=== PATIENT | female | born 1945 ===

== ENCOUNTER 2023-02-12 13:59 | Inpatient (IN) | payer MEDICARE, OTHER ==
[2023-02-12 14:12] LABS: Glucose,Whole Blood 130 mg/dL (70-110)
[2023-02-12] MEDS ORDERED: SODIUM CHLORIDE 0.9% 1,000 ML IV STA ×2 (14:19→18:01)
[2023-02-12] MEDS ORDERED: ONDANSETRON 4 MG/2 ML VIAL IVP STA ×2 (14:19→15:26)
[2023-02-12 14:27] LABS: Glucose,Whole Blood 129 mg/dL (70-110)
--- NOTE | 2023-02-12 14:30 | ED ---
General Adult HPI - General Chief complaint: Syncope Stated complaint: Hypoglycemia Time Seen by Provider: 02/12/23 14:09 Source: patient, EMS Mode of arrival: EMS Limitations: no limitations - History of Present Illness Initial comments: Dictation was produced using [employer] dictation software. please excuse any grammatical, word or spelling errors. Chief Complaint: 77-year-old female presents emergency department for hypoglycemia and abdominal pain History of Present Illness: 77-year-old female. History of present illness Limited due to Citizen Of [place] speaking only. Granddaughter is at the bedside provides history of present illness. Patient recently moved from [place] after her had . She has established diagnoses of hypertension, diabetes. She has no history of worsening renal function. She was told that s he needs dialysis however she is continued to refuse. This morning she woke up felt very ill. Family checked her blood sugar and was apparently the 20s. EMS was called and checked her blood sugar and it was significantly low into the 40s. She is given dextrose and her blood glucose levels improved. Patient complaining of lower abdominal pain. She does have some chills but denies any fevers. The ROS documented in this emergency department record has been reviewed and confirmed by me. Those systems with pertinent positive or negative responses have been documented in the HPI. All other systems are other negative and/or noncontributory. - Related Data Allergies Allergy/AdvReac Type Severity Reaction Status Date / Time No Known Allergies Allergy Verified 02/12/23 14:11 Review of Systems ROS Statement: Those systems with pertinent positive or pertinent negative responses have been documented in the HPI. ROS Other: All systems not noted in ROS Statement are negative. Past Medical History Past Medical History: Hypertension, Renal Disease History of Any Multi-Drug Resistant Organisms: None Reported Past Surgical History: No Surgical Hx Reported Smoking Status: Never smoker Past Alcohol Use History: None Reported Past Drug Use History: None Reported General Exam - General Exam Comments Initial Comments: PHYSICAL EXAM: General Impression: Alert and oriented x3, acute distress and her pain HEENT: Normocephalic atraumatic, extra-ocular movements intact, pupils equal and reactive to light bilaterally, dry mucous membranes Cardiovascular: Heart regular rate and rhythm Chest: Able to complete full sentences, no retractions, no tachypnea Abdomen: abdomen soft, palpatory tenderness in the bilateral lower abdominal area non-distended, no organomegaly Musculoskeletal: Pulses present and equal in all extremities, no peripheral edema Motor: no focal deficits noted Neurological: CN II-XII grossly intact, no focal motor or sensory deficits noted Skin: Intact with no visualized rashes Limitations: no limitations Course Vital Signs 02/12/23 02/12/23 02/12/23 14:03 14:04 14:30 Temperature 97 F L Pulse Rate 110 H 112 H Respiratory 22 14 Rate Blood Pressure 180/83 186/115 O2 Sat by Pulse 88 L 91 L 97 Oximetry 02/12/23 02/12/23 15:30 16:00 Temperature Pulse Rate 121 H 130 H Respiratory 9 L 17 Rate Blood Pressure 170/78 167/82 O2 Sat by Pulse 99 100 Oximetry Medical Decision Making - Medical Decision Making Was pt. sent in by a medical professional or institution (, PA, CURATORIAL ASSISTANT, urgent care, hospital, or intermediate...) When possible be specific @ -No Did you speak to anyone other than the patient for history (EMS, parent, family, police, friend...)? What history was obtained from this source @ -EMS, family member who provides history and interprets Did you review nursing and triage notes (agree or disagree)? Why? @ -I reviewed and agree with nursing and triage notes Were old charts reviewed (outside hosp., previous admission, EMS record, old EKG, old radiological studies, urgent care reports/EKG's, intermediate records)? Report findings @ -No old charts available Differential Diagnosis (chest pain, altered mental status, abdominal pain women, abdominal pain men, vaginal bleeding, musculoskeletal, weakness, fever, dyspnea, syncope, headache, dizziness, GI bleed, back pain, seizure, CVA, palpatations, mental health)? @ -Differential Abdominal Pain Women: Appendicitis, Cholecystitis, diverticulosis, ischemic bowel, pancreatitis, hepatitis, UTI, gastroenteritis, AAA, incarcerated hernia, bowel obstruction, constipation, inflammatory bowel, hepatitis, peptic ulcer disease, splenic infarction, perforated viscus, vulvitis, ovarian torsion, PID, kidney stone, placenta abruption, this is not meant to be an all-inclusive list EKG interpreted by me (3pts min.). @ -My EKG interpretation: Ventricular rate 107, sinus tachycardia,. 163, QRS 73, QTc 383. No [place] prolongation, no QTC prolongation, no ST or T-wave changes noted. Overall, this EKG is unremarkable X-rays interpreted by me (1pt min.). @ -Chest x-ray shows no acute processes CT interpreted by me (1pt min.). @ -CT of the abdomen and pelvis without contrast was obtained showing no acute processes U/S interpreted by me (1pt. min.). @ -None done What testing was considered but not performed or refused? (CT, X-rays, U/S, labs)? Why? @ -None What meds were considered but not given or refused? Why? @ -None Did you discuss the management of the patient with other professionals (professionals i.e. , PA, CURATORIAL ASSISTANT, lab, RT, psych nurse, social services analyst, childcare center director, teacher, personal banking officer, registered nurse hh case manager)? Give summary @ -Case discussed with Dr. Cano for admission Was smoking cessation discussed for >3mins.? @ -No Was critical care preformed (if so, how long)? @ -No Were there social determinants of health that impacted care today? How? (Homelessness, low income, unemployed, alcoholism, drug addiction, transportation, low edu. Level, literacy, decrease access to med. care, senior living, rehab)? @ -Recently Migrated from [place], Citizen Of [place] speaking only Was there de-escalation of care discussed even if they declined (Discuss DNR or withdrawal of care, Hospice)? DNR status @ -Patient refusing hemodialysis. CODE STATUS discussed. Patient DO NOT RESUSCITATE What co-morbidities impacted this encounter? (DM, HTN, Smoking, COPD, CAD, Cancer, CVA, ARF, Chemo, Hep., AIDS, mental health diagnosis, sleep apnea, mor bid obesity)? @ -None Was patient admitted / discharged? Hospital course, mention meds given and route, prescriptions, significant lab abnormalities, going to OR and other pertinent info. @ -77-year-old female, Citizen Of [place]-speaking only recently migrated from [place]. He is unclear whether patient has had adequate medical care and treatment while in [place]. She has no history of worsening kidney function. Patient adamantly refusing hemodialysis. She is allegedly on metformin for diabetes. Patient is brought to the area for hyperglycemia. Patient also having abdominal pain. CBC is unremarkable. Coag panel is negative. Metabolic panel shows mild gap acidosis. Elevated renal function with a BUN of 90 and a creatinine 5.21. No old labs for review. Urinalysis is positive for 29 white blood cells and 16 red blood cells. Patient was value by palliative care. Patient adamantly refusing hemodialysis. She is however agreeable for admission with medical treatment. Undiagnosed new problem with uncertain prognosis? @ -No Drug Therapy requiring intensive monitoring for toxicity (Heparin, Nitro, Insulin, Cardizem)? @ -No Were any procedures done? @ -No Diagnosis/symptom? Acute, or Chronic, or Acute on Chronic? Uncomplicated (without systemic symptoms) or Complicated (systemic symptoms)? @ -1. Acute kidney injury, 2. Intractable pain, no obvious source, 3. Hypoglycemia, no obvious source Side effects of treatment? @ -No Exacerbation, Progression, or Severe Exacerbation? @ -No Poses a threat to life or bodily function? How? (Chest pain, [place], [place], pneumonia, PE, COPD, DKA, ARF, appy, cholecystitis, CVA, Diverticulitis, Homicidal, Suicidal, threat to staff... and all critical care pts) @ -yes - Lab Data Result diagrams: 02/12/23 14:20 02/12/23 14:20 Lab Results 02/12/23 02/12/23 02/12/23 Range/Units 14:01 14:20 14:20 WBC 6.1 (3.8-10.6) k/uL RBC 3.70 L (3.80-5.40) m/uL Hgb 10.4 L (11.4-16.0) gm/dL Hct 33.3 L (34.0-46.0) % MCV 90.1 (80.0-100.0) fL MCH 28.1 (25.0-35.0) pg MCHC 31.2 (31.0-37.0) g/dL RDW 14.0 (11.5-15.5) % Plt Count 265 (150-450) k/uL MPV 6.9 Neutrophils % 67 % Lymphocytes % 28 % Monocytes % 3 % Eosinophils % 1 % Basophils % 0 % Neutrophils # 4.1 (1.3-7.7) k/uL Lymphocytes # 1.7 (1.0-4.8) k/uL Monocytes # 0.2 (0-1.0) k/uL Eosinophils # 0.0 (0-0.7) k/uL Basophils # 0.0 (0-0.2) k/uL PT 10.1 (9.0-12.0) sec INR 0.9 (<1.2) APTT 18.2 L (22.0-30.0) sec Sodium (137-145) mmol/L Potassium (3.5-5.1) mmol/L Chloride (98-107) mmol/L Carbon Dioxide (22-30) mmol/L Anion Gap mmol/L BUN (7-17) mg/dL Creatinine (0.52-1.04) mg/dL Est GFR (CKD-EPI)AfAm (>60 ml/min/1.73 sqM) Est GFR (CKD-EPI)NonAf (>60 ml/min/1.73 sqM) Glucose (74-99) mg/dL POC Glucose (mg/dL) 130 H (70-110) mg/dL POC Glu Critical Power Technician ID Sarita Hutchins Plasma Lactic Acid Sergo (0.7-2.0) mmol/L Calcium (8.4-10.2) mg/dL Magnesium (1.6-2.3) mg/dL Total Bilirubin (0.2-1.3) mg/dL AST (14-36) U/L ALT (4-34) U/L Alkaline Phosphatase (38-126) U/L Total Protein (6.3-8.2) g/dL Albumin (3.5-5.0) g/dL Urine Color Urine Appearance (Clear) Urine pH (5.0-8.0) Ur Specific [place] (1.001-1.035) Urine Protein (Negative) Urine Glucose (UA) (Negative) Urine Ketones (Negative) Urine Blood (Negative) Urine Nitrite (Negative) Urine Bilirubin (Negative) Urine Urobilinogen (<2.0) mg/dL Ur Leukocyte Esterase (Negative) Urine RBC (0-5) /hpf Urine WBC (0-5) /hpf Ur Squamous Epith Cells (0-4) /hpf Urine Bacteria (None) /hpf 02/12/23 02/12/23 02/12/23 Range/Units 14:20 14:20 14:20 WBC (3.8-10.6) k/uL RBC (3.80-5.40) m/uL Hgb (11.4-16.0) gm/dL Hct (34.0-46.0) % MCV (80.0-100.0) fL MCH (25.0-35.0) pg MCHC (31.0-37.0) g/dL RDW (11.5-15.5) % Plt Count (150-450) k/uL MPV Neutrophils % % Lymphocytes % % Monocytes % % Eosinophils % % Basophils % % Neutrophils # (1.3-7.7) k/uL Lymphocytes # (1.0-4.8) k/uL Monocytes # (0-1.0) k/uL Eosinophils # (0-0.7) k/uL Basophils # (0-0.2) k/uL PT (9.0-12.0) sec INR (<1.2) APTT (22.0-30.0) sec Sodium 139 (137-145) mmol/L Potassium 5.4 H (3.5-5.1) mmol/L Chloride 107 (98-107) mmol/L Carbon Dioxide 18 L (22-30) mmol/L Anion Gap 14 mmol/L BUN 90 H (7-17) mg/dL Creatinine 5.21 H (0.52-1.04) mg/dL Est GFR (CKD-EPI)AfAm 9 (>60 ml/min/1.73 sqM) Est GFR (CKD-EPI)NonAf 7 (>60 ml/min/1.73 sqM) Glucose 132 H (74-99) mg/dL POC Glucose (mg/dL) (70-110) mg/dL POC Glu Critical Power Technician ID Plasma Lactic Acid Sergo 1.9 (0.7-2.0) mmol/L Calcium 9.2 (8.4-10.2) mg/dL Magnesium 1.7 (1.6-2.3) mg/dL Total Bilirubin 0.4 (0.2-1.3) mg/dL AST 26 (14-36) U/L ALT 16 (4-34) U/L Alkaline Phosphatase 198 H (38-126) U/L Total Protein 6.6 (6.3-8.2) g/dL Albumin 3.3 L (3.5-5.0) g/dL Urine Color Light Yellow Urine Appearance Cloudy H (Clear) Urine pH 6.5 (5.0-8.0) Ur Specific [place] 1.009 (1.001-1.035) Urine Protein 2+ H (Negative) Urine Glucose (UA) Trace H (Negative) Urine Ketones Negative (Negative) Urine Blood Negative (Negative) Urine Nitrite Negative (Negative) Urine Bilirubin Negative (Negative) Urine Urobilinogen <2.0 (<2.0) mg/dL Ur Leukocyte Esterase Large H (Negative) Urine RBC 16 H (0-5) /hpf Urine WBC 29 H (0-5) /hpf Ur Squamous Epith Cells <1 (0-4) /hpf Urine Bacteria Occasional H (None) /hpf 02/12/23 02/12/23 Range/Units 14:25 15:37 WBC (3.8-10.6) k/uL RBC (3.80-5.40) m/uL Hgb (11.4-16.0) gm/dL Hct (34.0-46.0) % MCV (80.0-100.0) fL MCH (25.0-35.0) pg MCHC (31.0-37.0) g/dL RDW (11.5-15.5) % Plt Count (150-450) k/uL MPV Neutrophils % % Lymphocytes % % Monocytes % % Eosinophils % % Basophils % % Neutrophils # (1.3-7.7) k/uL Lymphocytes # (1.0-4.8) k/uL Monocytes # (0-1.0) k/uL Eosinophils # (0-0.7) k/uL Basophils # (0-0.2) k/uL PT (9.0-12.0) sec INR (<1.2) APTT (22.0-30.0) sec Sodium (137-145) mmol/L Potassium (3.5-5.1) mmol/L Chloride (98-107) mmol/L Carbon Dioxide (22-30) mmol/L Anion Gap mmol/L BUN (7-17) mg/dL Creatinine (0.52-1.04) mg/dL Est GFR (CKD-EPI)AfAm (>60 ml/min/1.73 sqM) Est GFR (CKD-EPI)NonAf (>60 ml/min/1.73 sqM) Glucose (74-99) mg/dL POC Glucose (mg/dL) 129 H 116 H (70-110) mg/dL POC Glu Critical Power Technician ID Erica Nur John Plasma Lactic Acid Sergo (0.7-2.0) mmol/L Calcium (8.4-10.2) mg/dL Magnesium (1.6-2.3) mg/dL Total Bilirubin (0.2-1.3) mg/dL AST (14-36) U/L ALT (4-34) U/L Alkaline Phosphatase (38-126) U/L Total Protein (6.3-8.2) g/dL Albumin (3.5-5.0) g/dL Urine Color Urine Appearance (Clear) Urine pH (5.0-8.0) Ur Specific [place] (1.001-1.035) Urine Protein (Negative) Urine Glucose (UA) (Negative) Urine Ketones (Negative) Urine Blood (Negative) Urine Nitrite (Negative) Urine Bilirubin (Negative) Urine Urobilinogen (<2.0) mg/dL Ur Leukocyte Esterase (Negative) Urine RBC (0-5) /hpf Urine WBC (0-5) /hpf Ur Squamous Epith Cells (0-4) /hpf Urine Bacteria (None) /hpf Disposition Clinical Impression: Hypoglycemia, Kidney injury Disposition: ADMITTED IP TO THIS [facility] Condition: Fair Decision Time: 17:31
[2023-02-12 15:02] LABS: Basophils % (A) 0 %; Eosinophils % (A) 1 %; HCT 33.3 % (34.0-46.0); HGB 10.4 gm/dL (11.4-16.0); Lymphocytes # (A) 1.7 k/uL (1.0-4.8); Lymphocytes % (A) 28 %; MCH 28.1 pg (25.0-35.0); MCHC 31.2 g/dL (31.0-37.0); MCV 90.1 fL (80.0-100.0); Mean Platelet Volume 6.9; Monocytes # (A) 0.2 k/uL (0-1.0); Monocytes % (A) 3 %; Neutrophils # (A) 4.1 k/uL (1.3-7.7); Neutrophils % (A) 67 %; Platelet Count 265 k/uL (150-450); WBC 6.1 k/uL (3.8-10.6)
[2023-02-12 15:10] LABS: INR 0.9 (<1.2); Prothrombin Time 10.1 sec (9.0-12.0)
[2023-02-12 15:12] LABS: Albumin 3.3 g/dL (3.5-5.0); Calcium 9.2 mg/dL (8.4-10.2); Magnesium 1.7 mg/dL (1.6-2.3); Potassium 5.4 mmol/L (3.5-5.1); Total Bilirubin 0.4 mg/dL (0.2-1.3); Total Protein 6.6 g/dL (6.3-8.2)
--- NOTE | 2023-02-12 15:15 | CT ---
EXAMINATION TYPE: CT abdomen pelvis wo con DATE OF EXAM: 02/12/2023 COMPARISON: None HISTORY: jaundice, renal failure CT DLP: 1058.6 mGycm Examination of the solid and hollow viscera is limited given the lack of contrast. Unenhanced CT of t he abdomen and pelvis was performed. The lack of intravenous and GI contrast limits evaluation. In ad dition motion also limits the study secondary to artifact. FINDINGS: LUNG BASES: No evidence for nodule. No evidence for infiltrate. Small hiatal hernia noted. LIVER/GB: There is gallbladder hydrops in maximal dimension of 8.8 cm. No definite cholelithiasis claire reciated on CT. No space-occupying hepatic lesion. PANCREAS: No pancreatic mass identified. No inflammatory process seen. SPLEEN: No evidence for splenomegaly. No intrasplenic lesions seen. ADRENALS: No adrenal nodules identified. No evidence for thickening. KIDNEYS: No evidence for renal mass. No nephrolithiasis. No hydronephrosis. Renal vascular calcificat ions seen. BOWEL: Appendix has a normal appearance. No evidence of bowel obstruction. No inflammatory process. Lymph nodes: No evidence for adenopathy greater than 1 cm. Abdominal aorta: Atheromatous changes seen. No evidence for aneurysm. Genital organs: No significant abnormality. Other: No significant abnormality. IMPRESSION: 1. Gallbladder hydrops without wall thickening or pericholecystic fluid. No evidence of cholelithiasi s.
[2023-02-12 15:17] LABS: Partial Thromboplastin Time 18.2 sec (22.0-30.0)
--- NOTE | 2023-02-12 15:20 | XR ---
EXAMINATION TYPE: XR chest 2V DATE OF EXAM: 02/12/2023 COMPARISON: NONE HISTORY: Shortness of breath TECHNIQUE: Frontal and lateral views of the chest are obtained. FINDINGS: Scattered senescent parenchymal changes noted. Hyperinflation compatible with COPD. No evidence for infiltrate. No evidence for atelectasis. Heart size is stable. Mediastinal structures are stable and grossly unremarkable. No evidence for hilar prominence. Degenerative changes dorsal spine. IMPRESSION: 1. No evidence for acute pulmonary disease.
[2023-02-12 15:21] LABS: Appearance,Urine Cloudy (Clear); Bacteria,Urine Occasional /hpf; Bilirubin,Urine Negative (Negative); Blood,Urine Negative (Negative); Color,Urine Light Yellow; Glucose,Urine (UA) Trace (Negative); Ketones,Urine Negative (Negative); Leukocyte Esterase,Urine Large (Negative); Nitrite,Urine Negative (Negative); PH, Urine 6.5 (5.0-8.0); Protein,Urine 2+ (Negative); RBC,Urine 16 /hpf (0-5); Specific Gravity,Urine 1.009 (1.001-1.035); Squamous Epithelial Cell,Urine <1 /hpf (0-4); Urobilinogen,Urine <2.0 mg/dL (<2.0); WBC,Urine 29 /hpf (0-5)
[2023-02-12 15:39] LABS: Glucose,Whole Blood 116 mg/dL (70-110)
[2023-02-12] MEDS ORDERED: MORPHINE SULFATE 4 MG/ML SYRINGE IV STA (16:20)
[2023-02-12] MEDS ORDERED: MORPHINE SULFATE 2 MG/ML SYRINGE IV STA (17:00)
[2023-02-12] MEDS ORDERED: NALOXONE 0.4 MG/ML 1 ML VIAL IV PRN (17:01)
[2023-02-12] MEDS ORDERED: MORPHINE SULFATE 2 MG/ML SYRINGE IV PRN (17:03)
[2023-02-12 17:20] LABS: Glucose,Whole Blood 73 mg/dL (70-110)
[2023-02-12] MEDS: SODIUM CHLORIDE 0.9% 1,000 ML IV SCH (17:38)
[2023-02-12] MEDS ORDERED: DEXTROSE 50% SYRINGE 50 ML IVP PRN ×2 (17:44)
[2023-02-12 18:16] LABS: Glucose,Whole Blood 72 mg/dL (70-110)
[2023-02-12] MEDS ORDERED: MORPHINE SULFATE 4 MG/ML SYRINGE IV PRN (18:16)
[2023-02-12] MEDS ORDERED: SODIUM ZIRCONIUM CYCLOSILICATE 10 GM PACKET PO ONE (18:30)
--- NOTE | 2023-02-12 18:57 | P.HPIM ---
History of Present Illness H&P Date: 02/12/23 History of Presenting Illness: Patient is a pleasant 77-year-old female with a reported past medical history of hypertension, [id number] diabetes mellitus, legally blind and end- stage renal disease not undergoing dialysis per her choice. She presented to the emergency department with her family today for chief complaint of hypoglycemia, increasing confusion and generalized body pain. Patient is from [place] and is strictly Romanian-speaking. Patient's family at bedside, son Mansoor Simeon and granddaughter Maggie Simeon are translating at this time. They report that patient came here from [place] nearly one month ago and has since rapidly declined in mentation as well as physical ability. They report she typically walks with a walker but is not even able to stand up anymore. they state she is aware that her kidneys are shutting down and did see a kidney doctor in [place] who recommended dialysis but she adamantly declined. Patient's family states that patient's sister a horrible undergoing dialysis and when the patient was previously of sound mind and alert she made the decision that she would never undergo dialysis.. They state she continues to produce urine and has been residing with them in their home since arrival to [place] one month ago and they brought her in today because she has been so weak and her blood sugar dropped low. They deny any recent fevers or illnesses and patient currently complaining of pain everywhere reporting her whole body is hurting. Pt underwent full evaluation in the emergency department. Labs completed and reviewed. CBC showing normocytic anemia with hemoglobin of 10.4. BMP revealing hyperkalemia with potassium of 5.4 and elevated renal function with BUN of 90, creatinine 5.21, and GFR of 7. Blood glucose 132. Lactate 1.9. Magnesium 1.7 . alkaline phosphatase elevated at 198. Urinalysis was obtained and positive for protein, leukocytes, 16 RBCs, and 29 WBCs. Chest x-ray completed and reviewed, lungs appear clear negative for acute cardiopulmonary process. CT abdomen and pelvis without contrast completed revealing gallbladder hydrops without wall thickening or a cholecystic fluid with no evidence of cholelithiasis.EKG showing sinus tachycardia at 107 bpm with no noted T-wave or ST abnormalities showing no signs of acute ischemia. dDscussed clinical findings, laboratory analysis, and imaging results with the ED physician in detail. Patient admitted under our services with consultation to nephrology. family states they would like to discuss with the kidney specialist to determine what they should do or if they should place their mom/grandmother on hospice. Review of systems: Pertinent positives and negatives as discussed in HPI, a complete review of systems was performed and all other systems are negative. Physical exam: Vital signs reviewed and stable. General: Nontoxic and appears stated age. chronically ill appearing, appears to be an moderate distress secondary to pain. Derm: Skin warm and dry, normal coloration for ethnicity. skin dry with poor skin turgor. Patient appears dehydrated. Head: Atraumatic, normocephalic and symmetric. Eyes: no lid lag, and anicteric sclera. patient is legally blind. Mouth: no lip lesions, mucus membranes dry Cardiovascular: regular rate and rhythm with normal S1S2, murmur, positive posterior tibial pulses bilaterally, and cap refill < 2 seconds. Lungs: Respirations even, regular, and unlabored on room air. Lungs diminished with soft expiratory wheezes. No rhonchi, no rales, no crackles and no accessory muscle usage. Abdominal: soft, nontender to palpation, no guarding, no appreciable organomegaly Ext: ROM intact. No gross muscle atrophy, no edema, no contractures Neuro: face symmetrical, no noted focal neuro deficits Psych: Alert and awake, appears restless Assessment and Plan of Care: Generalized weakness with worsening mentation ESRD not on dialysis Hyperkalemia Normocytic anemia likely secondary to ESRD Diabetes mellitus with hypoglycemia Hypertension Legally blind -Labs completed and reviewed. CBC showing normocytic anemia with hemoglobin of 10.4. BMP revealing hyperkalemia with potassium of 5.4 and elevated renal function with BUN of 90, creatinine 5.21, and GFR of 7. Blood glucose 132. Lactate 1.9. Magnesium 1.7 . alkaline phosphatase elevated at 198. -Urinalysis was obtained and positive for protein, leukocytes, 16 RBCs, and 29 WBCs. -Chest x-ray completed and reviewed, lungs appear clear negative for acute car diopulmonary process. -CT abdomen and pelvis without contrast completed revealing gallbladder hydrops without wall thickening or a cholecystic fluid with no evidence of cholelithiasis. -EKG showing sinus tachycardia at 107 bpm with no noted T-wave or ST abnormalities showing no signs of acute ischemia upon personal review and interpretation. -Dscussed clinical findings, laboratory analysis, and imaging results with the ED physician in detail. -Patient admitted under our services to general medical unit with telemetry . -Consult placed to nephrology. -Consult placed to hospice. -Patient is a DO NOT RESUSCITATE/DO NOT INTUBATE per family at bedside Family states they would like to discuss with the kidney specialist to determine what they should do or if they should place their mom/grandmother on hospice. -hold Bumex as patient appears to be dehydrated and patient placed on gentle IV fluid infusion with 0.9% normal saline at 75 mL's per hour. Do not have baseline renal function only family reports that patient has end-stage renal disease and was previously discussed dialysis by physician in [place] when patient's mentation was much better and she declined.we'll continue with the g entle IV fluid hydration and repeat CBC and CMP and magnesium in the morning to determine if any improvement in renal function. -Patient given Lokelma 10 mg by mouth 1 dose for potassium of 5.4. -Patient to remain on continuous telemetry monitoring. CODE STATUS: DO NOT RESUSCITATE/DO NOT INTUBATE DVT prophylaxis: heparin Discussed with: ED physician, RN, and patient's family at bedside. Anticipated discharge date: clinical course to determine Anticipated discharge place: home with family Patient was seen independently by Nurse Practitioner. This document was prepared using [employer] dictation software. Please allow for errors in epoxy fabrication supervisor while rare they do occur. I reviewed the documentation as provided by the RUMA above, who is the original author of this note. I agree with the documented assessment and plan, with the following changes: none Past Medical History Past Medical History: Hypertension, Renal Disease History of Any Multi-Drug Resistant Organisms: None Reported Past Surgical History: No Surgical Hx Reported Smoking Status: Never smoker Past Alcohol Use History: None Reported Past Drug Use History: None Reported Medications and Allergies Home Medications Medication Instructions Recorded Confirmed Type Bumetanide [Bumex] 1 mg PO DAILY 02/12/23 02/12/23 History Cetolan 630mg Tab 1 tab PO BID 02/12/23 02/12/23 History Folic Acid 5 mg PO DAILY 02/12/23 02/12/23 History NIFEdipine XL [Procardia Xl] 30 mg PO DAILY 02/12/23 02/12/23 History glyBURIDE/METFORMIN HCL 0.5 tab PO BID PRN 02/12/23 02/12/23 History [Glucovance 2.5-500 mg] Allergies Allergy/AdvReac Type Severity Reaction Status Date / Time No Known Allergies Allergy Verified 02/12/23 17:37 Physical Exam Vitals: Vital Signs Temp Pulse Resp BP Pulse Ox 02/12/23 16:00 130 H 17 167/82 100 02/12/23 15:30 121 H 9 L 170/78 99 02/12/23 14:30 112 H 14 186/115 97 02/12/23 14:04 91 L 02/12/23 14:03 97 F L 110 H 22 180/83 88 L Intake and Output 02/12/23 02/12/23 02/12/23 06:59 14:59 22:59 Other: Weight 60.328 kg Results CBC & Chem 7: 02/13/23 04:25 02/13/23 04:25 Labs: Abnormal Lab Results - Last 24 Hours (Table) 02/12/23 02/12/23 02/12/23 Range/Units 14:01 14:20 14:20 RBC 3.70 L (3.80-5.40) m/uL Hgb 10.4 L (11.4-16.0) gm/dL Hct 33.3 L (34.0-46.0) % APTT 18.2 L (22.0-30.0) sec Potassium (3.5-5.1) mmol/L Carbon Dioxide (22-30) mmol/L BUN (7-17) mg/dL Creatinine (0.52-1.04) mg/dL Glucose (74-99) mg/dL POC Glucose (mg/dL) 130 H (70-110) mg/dL Alkaline Phosphatase (38-126) U/L Albumin (3.5-5.0) g/dL Urine Appearance (Clear) Urine Protein (Negative) Urine Glucose (UA) (Negative) Ur Leukocyte Esterase (Negative) Urine RBC (0-5) /hpf Urine WBC (0-5) /hpf Urine Bacteria (None) /hpf 02/12/23 02/12/23 02/12/23 Range/Units 14:20 14:20 14:25 RBC (3.80-5.40) m/uL Hgb (11.4-16.0) gm/dL Hct (34.0-46.0) % APTT (22.0-30.0) sec Potassium 5.4 H (3.5-5.1) mmol/L Carbon Dioxide 18 L (22-30) mmol/L BUN 90 H (7-17) mg/dL Creatinine 5.21 H (0.52-1.04) mg/dL Glucose 132 H (74-99) mg/dL POC Glucose (mg/dL) 129 H (70-110) mg/dL Alkaline Phosphatase 198 H (38-126) U/L Albumin 3.3 L (3.5-5.0) g/dL Urine Appearance Cloudy H (Clear) Urine Protein 2+ H (Negative) Urine Glucose (UA) Trace H (Negative) Ur Leukocyte Esterase Large H (Negative) Urine RBC 16 H (0-5) /hpf Urine WBC 29 H (0-5) /hpf Urine Bacteria Occasional H (None) /hpf 02/12/23 Range/Units 15:37 RBC (3.80-5.40) m/uL Hgb (11.4-16.0) gm/dL Hct (34.0-46.0) % APTT (22.0-30.0) sec Potassium (3.5-5.1) mmol/L Carbon Dioxide (22-30) mmol/L BUN (7-17) mg/dL Creatinine (0.52-1.04) mg/dL Glucose (74-99) mg/dL POC Glucose (mg/dL) 116 H (70-110) mg/dL Alkaline Phosphatase (38-126) U/L Albumin (3.5-5.0) g/dL Urine Appearance (Clear) Urine Protein (Negative) Urine Glucose (UA) (Negative) Ur Leukocyte Esterase (Negative) Urine RBC (0-5) /hpf Urine WBC (0-5) /hpf Urine Bacteria (None) /hpf
[2023-02-12 19:32] LABS: Glucose,Whole Blood 79 mg/dL (70-110)
[2023-02-12] MEDS: NIFEdipine XL 30 MG TAB.ER.24 PO SCH (21:14)
[2023-02-12] MEDS: MORPHINE SULFATE 2 MG/ML SYRINGE IV PRN (21:20)
[2023-02-12 21:26] LABS: Glucose,Whole Blood 106 mg/dL (70-110)
[2023-02-12] MEDS: HEPARIN SODIUM,PORCINE/PF 5,000 UNIT/0.5 ML SYRINGE SQ SCH (23:21)
[2023-02-13 06:16] LABS: Glucose,Whole Blood 113 mg/dL (70-110)
[2023-02-13] MEDS: MORPHINE SULFATE 2 MG/ML SYRINGE IV PRN ×2 (06:26→15:58)
[2023-02-13] MEDS: NIFEdipine XL 30 MG TAB.ER.24 PO SCH (08:58)
[2023-02-13] MEDS ORDERED: NIFEdipine XL 30 MG TAB.ER.24 PO SCH (09:00)
[2023-02-13] MEDS: HEPARIN SODIUM,PORCINE/PF 5,000 UNIT/0.5 ML SYRINGE SQ SCH ×2 (09:03→15:54)
[2023-02-13 09:36] LABS: African American GFR (CKD) 8.6 (60.0-200.0); Albumin 2.6 g/dL (3.8-4.9); Albumin/Globulin Ratio 1.18 (1.60-3.17); Anion Gap 10.1 mmol/L (10.00-18.00); BUN/Creat Ratio 15.67 Ratio (12.00-20.00); Blood Urea Nitrogen 81.5 mg/dL (9.0-27.0); Calcium 8.3 mg/dL (8.7-10.3); Carbon Dioxide 16.9 mmol/L (20.0-27.5); Globulin 2.2 g/dL (1.6-3.3); Magnesium 1.3 mg/dL (1.5-2.4); Non-African American GFR(CKD) 7.4 (60.0-200.0); Potassium 4.9 mmol/L (3.5-5.5); Total Bilirubin 0.2 mg/dL (0.30-1.20); Total Protein 4.8 g/dL (6.2-8.2)
[2023-02-13 09:49] LABS: HCT 25.9 % (37.2-46.3); HGB 8.1 g/dL (12.0-15.0); MCH 28.6 pg (27.0-32.0); MCHC 31.3 g/dL (32.0-37.0); MCV 91.5 fL (80.0-97.0); Mean Platelet Volume 9.6 fL (9.5-12.2); NRBC Per 100 WBC 0 /100 WBCS (0.0-0.0); Platelet Count 166 X 10*3/uL (140-440); RBC 2.83 X 10*6/uL (4.10-5.20); RDW 14.1 % (11.5-14.5); WBC 10.95 X 10*3/uL (4.50-10.00)
--- NOTE | 2023-02-13 10:55 | P.NPCON ---
History of Present Illness - Reason for Consult chronic renal failure - History of Present Illness Patient is a 77-year-old female who recently moved to the from [place]. Patient has underlying chronic kidney disease. Patient has been reluctant for any renal replacement therapy as she has had a bad experience with her daughter having had dialysis. Apparently 2 daughters were on dialysis and have in [place]. Details of the etiology not known. Baseline renal function not known. At this time family is present at bedside as patient is not able to speak Estonian and they would like to know if there are any other options for care besides renal replacement therapy. Patient is apparently not been eating much for the past few months. She is mostly laying in bed. Patient is used to being fed however she is able to feed herself. She has had urine output her family. Patient has been complaining of nausea for some time now. Serum creatinine is 5.2 with BUN of 90. She is able to comprehend and consults questions appropriately in Sinhala. Patient is blind. I have discussed with the family regarding options for trying temporary hemodialysis along with inpatient rehab to see if patient's general condition improves with improved appetite with correction of uremia. Patient was asked multiple times by her family and she is adamant that she does not want to pursue any dialysis. Options of hospice care discussed with family as well. Review of Systems As per HPI. Past Medical History Past Medical History: Diabetes Mellitus, Hypertension, Renal Disease Additional Past Medical History / Comment(s): legally blind History of Any Multi-Drug Resistant Organisms: None Reported Past Surgical History: No Surgical Hx Reported Past Anesthesia/Blood Transfusion Reactions: Unable to Obtain Past Psychological History: Unable to Obtain Smoking Status: Never smoker Past Alcohol Use History: None Reported Past Drug Use History: None Reported Medications and Allergies Home Medications Medication Instructions Recorded Confirmed Type Bumetanide [Bumex] 1 mg PO DAILY 02/12/23 02/12/23 History Cetolan 630mg Tab 1 tab PO BID 02/12/23 02/12/23 History Folic Acid 5 mg PO DAILY 02/12/23 02/12/23 History NIFEdipine XL [Procardia Xl] 30 mg PO DAILY 02/12/23 02/12/23 History glyBURIDE/METFORMIN HCL 0.5 tab PO BID PRN 02/12/23 02/12/23 History [Glucovance 2.5-500 mg] Allergies Allergy/AdvReac Type Severity Reaction Status Date / Time No Known Allergies Allergy Verified 02/12/23 17:37 Physical Exam Vitals: Vital Signs Temp Pulse Pulse Resp BP BP Pulse Ox 02/13/23 08:39 108 H 100 02/13/23 07:20 97.6 F 112 H 18 150/73 99 02/13/23 01:21 98.9 F 102 H 20 138/68 99 02/12/23 19:45 98.9 F 88 14 145/89 96 02/12/23 19:10 136/64 02/12/23 19:00 118 H 16 153/93 98 02/12/23 18:00 121 H 16 153/93 91 L 02/12/23 16:00 130 H 17 167/82 100 02/12/23 15:30 121 H 9 L 170/78 99 02/12/23 14:30 112 H 14 186/115 97 02/12/23 14:04 91 L 02/12/23 14:03 97 F L 110 H 22 180/83 88 L Intake and Output 02/12/23 02/13/23 02/13/23 22:59 06:59 14:59 Intake Total 0 Output Total 600 100 Balance -600 -100 Intake: Oral 0 Output: Urine 600 100 Other: Voiding Method Indwelling Catheter Weight 60.328 kg Patient is awake, comfortable, no acute distress Patient is blind Examination of the heart S1 and S2 Examination of the lungs bilateral breath sounds are heard Abdomen is soft nontender Examination of lower extremity shows trace edema bilaterally [employer]HE[employer] exam grossly intact Results - Lab Results Most recent lab results Calcium 8.3 mg/dL (8.7-10.3) L 02/13/23 04:25 Magnesium 1.3 mg/dL (1.5-2.4) L 02/13/23 04:25 02/13/23 04:25 02/13/23 04:25 Assessment and Plan Assessment: 1. Chronic kidney disease with evidence of uremia. Baseline renal function not known however it appears that patient has had significant symptoms of uremia for months now. At this time there are no plans for renal replacement therapy. Options regarding hospice care have been discussed with the patient's family. In the meantime we will continue with IV fluids and continue to encourage incr ease oral intake. Etiology not known. Of note is that patient's 2 daughters were on hemodialysis in [place] and both have . 2. Non-gap metabolic acidosis secondary to renal failure 3. Anemia of chronic disease rule out iron deficiency 4. Hyperkalemia associated with advanced renal failure status post local Helma Plan: Continue with IV fluids Add oral sodium bicarb Change to Ringer lactate Check iron profile Add Aranesp if iron replete Options regarding hospice care discussed with the family as there are no plans for renal replacement therapy.
[2023-02-13 11:57] LABS: Glucose,Whole Blood 140 mg/dL (70-110)
[2023-02-13] MEDS: MAGNESIUM SULFATE-D5W PMX 1 GM in DEXTROSE/WATER 1 100ML.BAG IVPB SCH ×3 (12:18→15:50)
[2023-02-13] MEDS: SODIUM CHLORIDE 0.9% 1,000 ML IV SCH (12:21)
--- NOTE | 2023-02-13 14:57 | P.PN ---
Subjective Progress Note Date: 02/13/23 Hospital Course: Patient is a pleasant 77-year-old female with a reported past medical history of hypertension, [id number] diabetes mellitus, legally blind and end- stage renal disease not undergoing dialysis per her choice. She presented to the emergency department with her family today for chief complaint of hypoglycemia, increasing confusion and generalized body pain. Patient is from [place] and is strictly [place]-speaking. Patient's family at bedside, son Mansoor Simeon and granddaughter Maggie Simeon are translating at this time. They report that patient came here from [place] nearly one month ago and has since rapidly declined in mentation as well as physical ability. They report she typically walks with a walker but is not even able to stand up anymore. they state she is aware that her kidneys are shutting down and did see a kidney doct or in [place] who recommended dialysis but she adamantly declined. Patient's family states that patient's sister a horrible undergoing dialysis and when the patient was previously of sound mind and alert she made the decision that she would never undergo dialysis.. They state she continues to produce urine and has been residing with them in their home since arrival to [place] one month ago and they brought her in today because she has been so weak and her blood sugar dropped low. They deny any recent fevers or illnesses and patient currently complaining of pain everywhere reporting her whole body is hurting. Pt underwent full evaluation in the emergency department. Labs complete d and reviewed. CBC showing normocytic anemia with hemoglobin of 10.4. BMP revealing hyperkalemia with potassium of 5.4 and elevated renal function with BUN of 90, creatinine 5.21, and GFR of 7. Blood glucose 132. Lactate 1.9. Magnesium 1.7 . alkaline phosphatase elevated at 198. Urinalysis was obtained and positive for protein, leukocytes, 16 RBCs, and 29 WBCs. Chest x-ray completed and reviewed, lungs appear clear negative for acute cardiopulmonary process. CT abdomen and pelvis without contrast completed revealing gallbladder hydrops without wall thickening or a cholecystic fluid with no evidence of cholelithiasis.EKG showing sinus tachycardia at 107 bpm with no noted T-wave or ST abnormalities showing no signs of acute ischemia. dDscussed clinical findings, laboratory analysis, and imaging results with the ED physician in detail. Patient was admitted under our services with consultation to nephrology. Family stated they would like to discuss with the kidney specialist to determine what they should do or if they should place their mom/grandmother on hospice. 02/13/23. Met with family at bedside along with water main inspector #[id number]. Discussed plan of care and patient wishes for family to make decisions for her going forward as patient would not like to ever received dialysis. This was confirmed via water main inspector. Family would like to take patient home on ho spice. Consult placed for hospice at this time. Discussed plan of care with case management/social work to assist family with obtaining supplies needed for home hospice. Plan is for discharge patient home on hospice tomorrow morning. Physical exam: Vital signs reviewed and stable. General: Nontoxic and appears stated age. chronically ill appearing, appears to be in mild distress secondary to pain. Derm: Skin warm and dry, normal coloration for ethnicity. skin dry with poor skin turgor. Patient appears dehydrated. Head: Atraumatic, normocephalic and symmetric. Eyes: no lid lag, and anicteric sclera. patient is legally blind. Mouth: no lip lesions, mucus membranes dry Cardiovascular: regular rate and rhythm with normal S1S2, murmur, positive posterior tibial pulses bilaterally, and cap refill < 2 seconds. Lungs: Respirations even, regular, and unlabored on room air. Lungs diminished with soft expiratory wheezes. No rhonchi, no rales, no crackles and no accessory muscle usage. Abdominal: soft, nontender to palpation, no guarding, no appreciable organomegaly Ext: ROM intact. No gross muscle atrophy, no edema, no contractures Neuro: face symmetrical, no noted focal neuro deficits Psych: Alert and awake, appears restless Assessment and Plan of Care: Generalized weakness with worsening mentation ESRD not on dialysis Hypomagnesemia Hyperkalemia, resolved Normocytic anemia likely secondary to ESRD Diabetes mellitus with hypoglycemia Hypertension Legally blind -Labs completed and reviewed. Laboratory findings showing normocytic anemia with hemoglobin of 8.1 and remained consistent with ESRD with BUN of 81.5, creatinine 5.2 and GFR of 7.4. Hyperkalemia has resolved with potassium decreasing from 5.4 down to 4.9 status post Lokelma 1 dose. Magnesium was low at 1.[address] for 3 L magnesium sulfate IVPB for replacement. No need for further report heat labs as patient and family have chosen comfort measures only. -Nephrology following and discussed case with professional skater: Stated after long discussion with patient and patient's family, patient does not want to be placed on hemodialysis and is in understanding that she will without treatment. -Consult placed to hospice, discussed plan of care with conveyor feeder offbearer and plan is for discharge home to home hospice tomorrow morning -We will continue with symptomatic care and pain management CODE STATUS: DO NOT RESUSCITATE/DO NOT INTUBATE DVT prophylaxis: heparin Discussed with: Family, professional skater, and patient using water main inspector #[id number] Anticipated discharge date: Tomorrow morning Anticipated discharge place: home with hospice Patient was seen independently by Nurse Practitioner. This document was prepared using [employer] dictation software. Please allow for errors in full roll inspector while rare they do occur. I reviewed the documentation as provided by the RUMA above, who is the original author of this note. I agree with the documented assessment and plan, with the following changes: none Objective - Vital Signs Vital signs: Vital Signs Temp 97.6 F 02/13/23 07:20 Pulse 108 H 02/13/23 08:39 Resp 18 02/13/23 07:20 BP 150/73 02/13/23 07:20 Pulse Ox 100 02/13/23 08:39 FiO2 Intake & Output 02/12/23 02/13/23 02/13/23 18:59 06:59 18:59 Intake Total 0 Output Total 700 Balance -700 Weight 60.328 kg 60.328 kg Intake: Oral 0 Output: Urine 700 Other: Voiding Method Indwelling Catheter - Labs CBC & Chem 7: 02/13/23 04:25 02/13/23 04:25 Labs: Abnormal Lab Results - Last 24 Hours (Table) 02/12/23 02/12/23 02/12/23 Range/Units 14:01 14:20 14:20 WBC (4.50-10.00) X 10*3/uL RBC 3.70 L (3.80-5.40) m/uL Hgb 10.4 L (11.4-16.0) gm/dL Hct 33.3 L (34.0-46.0) % MCHC (32.0-37.0) g/dL APTT 18.2 L (22.0-30.0) sec Potassium (3.5-5.1) mmol/L Chloride (96-109) mmol/L Carbon Dioxide (22-30) mmol/L BUN (7-17) mg/dL Creatinine (0.52-1.04) mg/dL Est GFR (CKD-EPI)AfAm (60.0-200.0) Est GFR (CKD-EPI)NonAf (60.0-200.0) Glucose (74-99) mg/dL POC Glucose (mg/dL) 130 H (70-110) mg/dL Hemoglobin A1c (0.0-6.0) % Calcium (8.7-10.3) mg/dL Magnesium (1.5-2.4) mg/dL Total Bilirubin (0.30-1.20) mg/dL Alkaline Phosphatase (38-126) U/L Total Protein (6.2-8.2) g/dL Albumin (3.5-5.0) g/dL Albumin/Globulin Ratio (1.60-3.17) g/dL Urine Appearance (Clear) Urine Protein (Negative) Urine Glucose (UA) (Negative) Ur Leukocyte Esterase (Negative) Urine RBC (0-5) /hpf Urine WBC (0-5) /hpf Urine Bacteria (None) /hpf 02/12/23 02/12/23 02/12/23 Range/Units 14:20 14:20 14:25 WBC (4.50-10.00) X 10*3/uL RBC (3.80-5.40) m/uL Hgb (11.4-16.0) gm/dL Hct (34.0-46.0) % MCHC (32.0-37.0) g/dL APTT (22.0-30.0) sec Potassium 5.4 H (3.5-5.1) mmol/L Chloride (96-109) mmol/L Carbon Dioxide 18 L (22-30) mmol/L BUN 90 H (7-17) mg/dL Creatinine 5.21 H (0.52-1.04) mg/dL Est GFR (CKD-EPI)AfAm (60.0-200.0) Est GFR (CKD-EPI)NonAf (60.0-200.0) Glucose 132 H (74-99) mg/dL POC Glucose (mg/dL) 129 H (70-110) mg/dL Hemoglobin A1c (0.0-6.0) % Calcium (8.7-10.3) mg/dL Magnesium (1.5-2.4) mg/dL Total Bilirubin (0.30-1.20) mg/dL Alkaline Phosphatase 198 H (38-126) U/L Total Protein (6.2-8.2) g/dL Albumin 3.3 L (3.5-5.0) g/dL Albumin/Globulin Ratio (1.60-3.17) g/dL Urine Appearance Cloudy H (Clear) Urine Protein 2+ H (Negative) Urine Glucose (UA) Trace H (Negative) Ur Leukocyte Esterase Large H (Negative) Urine RBC 16 H (0-5) /hpf Urine WBC 29 H (0-5) /hpf Urine Bacteria Occasional H (None) /hpf 02/12/23 02/13/23 02/13/23 Range/Units 15:37 04:25 04:25 WBC 10.95 H (4.50-10.00) X 10*3/uL RBC 2.83 L (3.80-5.40) m/uL Hgb 8.1 L (11.4-16.0) gm/dL Hct 25.9 L (34.0-46.0) % MCHC 31.3 L (32.0-37.0) g/dL APTT (22.0-30.0) sec Potassium (3.5-5.1) mmol/L Chloride (96-109) mmol/L Carbon Dioxide (22-30) mmol/L BUN (7-17) mg/dL Creatinine (0.52-1.04) mg/dL Est GFR (CKD-EPI)AfAm (60.0-200.0) Est GFR (CKD-EPI)NonAf (60.0-200.0) Glucose (74-99) mg/dL POC Glucose (mg/dL) 116 H (70-110) mg/dL Hemoglobin A1c 7.6 H (0.0-6.0) % Calcium (8.7-10.3) mg/dL Magnesium (1.5-2.4) mg/dL Total Bilirubin (0.30-1.20) mg/dL Alkaline Phosphatase (38-126) U/L Total Protein (6.2-8.2) g/dL Albumin (3.5-5.0) g/dL Albumin/Globulin Ratio (1.60-3.17) g/dL Urine Appearance (Clear) Urine Protein (Negative) Urine Glucose (UA) (Negative) Ur Leukocyte Esterase (Negative) Urine RBC (0-5) /hpf Urine WBC (0-5) /hpf Urine Bacteria (None) /hpf 02/13/23 02/13/23 Range/Units 04:25 06:13 WBC (4.50-10.00) X 10*3/uL RBC (3.80-5.40) m/uL Hgb (11.4-16.0) gm/dL Hct (34.0-46.0) % MCHC (32.0-37.0) g/dL APTT (22.0-30.0) sec Potassium (3.5-5.1) mmol/L Chloride 114 H (96-109) mmol/L Carbon Dioxide 16.9 L (22-30) mmol/L BUN 81.5 H (7-17) mg/dL Creatinine 5.2 H (0.52-1.04) mg/dL Est GFR (CKD-EPI)AfAm 8.6 L (60.0-200.0) Est GFR (CKD-EPI)NonAf 7.4 L (60.0-200.0) Glucose 127 H (74-99) mg/dL POC Glucose (mg/dL) 113 H (70-110) mg/dL Hemoglobin A1c (0.0-6.0) % Calcium 8.3 L (8.7-10.3) mg/dL Magnesium 1.3 L (1.5-2.4) mg/dL Total Bilirubin 0.20 L (0.30-1.20) mg/dL Alkaline Phosphatase (38-126) U/L Total Protein 4.8 L (6.2-8.2) g/dL Albumin 2.6 L (3.5-5.0) g/dL Albumin/Globulin Ratio 1.18 L (1.60-3.17) g/dL Urine Appearance (Clear) Urine Protein (Negative) Urine Glucose (UA) (Negative) Ur Leukocyte Esterase (Negative) Urine RBC (0-5) /hpf Urine WBC (0-5) /hpf Urine Bacteria (None) /hpf Microbiology - Last 24 Hours (Table) 02/12/23 14:20 Urine Culture - Preliminary Urine,Catheterized
[2023-02-13] MEDS: LACTATED RINGERS 1,000 ML IV SCH (15:51)
[2023-02-13 16:14] LABS: % Iron Saturation 3.74 (12.00-45.00)
[2023-02-13 17:09] LABS: Glucose,Whole Blood 266 mg/dL (70-110)
--- NOTE | 2023-02-13 20:56 | CDI ---
Documentation Clarification Form Date: 02/13/2023 8:30:45 PM From: Belem Ramires RN, CCDS Admit Date: 02/12/2023 5:01:00 PM Patient Name: Maggie Simeon Visit Number: [id number] Discharge Date: ATTENTION: The Clinical Documentation Specialists (CDI) and [facility] Coding Staff appreciate your assistance in clarifying documentation. Please respond to the clarification below the line at the bottom and electronically sign. The CDI & [facility] Coding staff will review the response and follow-up if needed. Please note: Queries are made part of the Legal Health Record. If you have any questions, please contact the author of this message via ITS. Dr. Luke Wolf Your patient has the documented symptom of Altered Mental Status in the H/P. Additional clarification regarding the etiology/cause of this symptom is requested. History/Risk Factors: Hypertension Diabetes Mellitus, ESRD no on HD Clinical Indicators: 77-year-old female found unresponsive with a CBG of 47. She has increasing confusion with rapidly decline in mentation and physical ability. 02/12 Vital signs: 180 83 110 22 97 88 % RA 02/12 Labs: BUN 90 Cr 5.L21, GFR 7, Blood glucose 139 Carbon dioxide 18, Lactic acid 1.6.9 Magnesium 1.7 UA: Large Leukocyte Esterase WBC >29 02/12 Urine culture (Preliminary) Gram Nag Bacilli CXR: No acute pulmonary disease Treatment: Cardiac/Telemetry monitoring Neuro check per protocol Hypoglycemia protocol Lactated Ringers @70 MLS/HR 02/02-02/13 .0 NS 1,000 ML Bolus x2 Please clarify the etiology of the symptom of Altered Mental Status: [ ] Metabolic encephalopathy due to [insert cause of encephalopathy] [ ] Dementia (if know, specify Type and if with/without Behavioral Disturbance) [ ] Other condition (please specify) [ x ] Unable to determine (Template Last Revised: November 2020) MTDD
[2023-02-13 21:47] LABS: Glucose,Whole Blood 234 mg/dL (70-110)
[2023-02-13] MEDS: SODIUM BICARBONATE TAB 650 MG TAB PO SCH (23:24)
[2023-02-14] MEDS: LACTATED RINGERS 1,000 ML IV SCH (00:43)
[2023-02-14] MEDS: HEPARIN SODIUM,PORCINE/PF 5,000 UNIT/0.5 ML SYRINGE SQ SCH ×2 (00:43→09:30)
[2023-02-14 03:29] LABS: Glucose,Whole Blood 185 mg/dL (70-110)
[2023-02-14 06:31] LABS: Glucose,Whole Blood 161 mg/dL (70-110)
[2023-02-14 07:51] VITALS: BP 107/55; PULSE 91; RESP 19; TEMP 98.5
--- NOTE | 2023-02-14 08:37 | P.PN ---
Subjective Progress Note Date: 02/14/23 Principal diagnosis: This is 77-year-old patient who only's weeks Maori. There were 2 relatives in the room, also unable to speak Citizen [place]. She is known with chronic kidney disease unknown details, came in with what seemed to be uremia but refuses dialysis. Currently on IV fluids. She is awake and alert and seems to be responding to the relatives questions appropriately. She is hardly eating anything just drank small amount of liquid. Blood pressure is somewhat low 108/57, 107/55, 123/67. Heart rate in the 100/m to 110. 24-hour urine output is 575 mL. Relative who speaks Citizen [place] is expected in a few minutes and when he arrives I will talk to him regarding dialysis options Objective - Vital Signs Vital signs: Vital Signs Temp 98.5 F 02/14/23 07:36 Pulse 91 02/14/23 07:36 Resp 19 02/14/23 07:36 BP 107/55 02/14/23 07:36 Pulse Ox 100 02/14/23 07:36 FiO2 Intake & Output 02/13/23 02/14/23 02/14/23 18:59 06:59 18:59 Intake Total 700 840 Output Total 275 300 Balance 425 540 Intake: IV 700 Lactated Ringers 1,000 ml 700 @ 70 mls/hr IV .[id number] DIANE Rx#:[id number] Intake, IV Titration 840 Amount Lactated Ringers 1,000 ml 840 @ 70 mls/hr IV .[id number] DIANE Rx#:[id number] Output: Urine 275 300 Uretheral (Leblanc) 275 300 Other: Voiding Method Indwelling Catheter Indwelling Catheter Awake alert but looks weak and tired. No facial asymmetry Lungs clear to auscultation fair air entry Heart sounds unremarkable no rub Abdomen soft nontender Extremity exam was minimal edema somewhat tender to touch no cellulitis. Neurologically difficult to examine but moves all her extremities. - Labs CBC & Chem 7: 02/13/23 04:25 02/13/23 04:25 Labs: Abnormal Lab Results - Last 24 Hours (Table) 02/13/23 02/13/23 02/13/23 Range/Units 04:25 04:25 04:25 WBC 10.95 H (4.50-10.00) X 10*3/uL RBC 2.83 L (4.10-5.20) X 10*6/uL Hgb 8.1 L (12.0-15.0) g/dL Hct 25.9 L (37.2-46.3) % MCHC 31.3 L (32.0-37.0) g/dL Chloride 114 H (96-109) mmol/L Carbon Dioxide 16.9 L (20.0-27.5) mmol/L BUN 81.5 H (9.0-27.0) mg/dL Creatinine 5.2 H (0.6-1.5) mg/dL Est GFR (CKD-EPI)AfAm 8.6 L (60.0-200.0) Est GFR (CKD-EPI)NonAf 7.4 L (60.0-200.0) Glucose 127 H (70-110) mg/dL POC Glucose (mg/dL) (70-110) mg/dL Hemoglobin A1c 7.6 H (0.0-6.0) % Calcium 8.3 L (8.7-10.3) mg/dL Magnesium 1.3 L (1.5-2.4) mg/dL Iron (50-170) ug/dL TIBC (228-460) ug/dL % Saturation (12.00-45.00) Transferrin (204.0-354.0) mg/dL Total Bilirubin 0.20 L (0.30-1.20) mg/dL Total Protein 4.8 L (6.2-8.2) g/dL Albumin 2.6 L (3.8-4.9) g/dL Albumin/Globulin Ratio 1.18 L (1.60-3.17) g/dL 02/13/23 02/13/23 02/13/23 Range/Units 04:25 11:55 17:08 WBC (4.50-10.00) X 10*3/uL RBC (4.10-5.20) X 10*6/uL Hgb (12.0-15.0) g/dL Hct (37.2-46.3) % MCHC (32.0-37.0) g/dL Chloride (96-109) mmol/L Carbon Dioxide (20.0-27.5) mmol/L BUN (9.0-27.0) mg/dL Creatinine (0.6-1.5) mg/dL Est GFR (CKD-EPI)AfAm (60.0-200.0) Est GFR (CKD-EPI)NonAf (60.0-200.0) Glucose (70-110) mg/dL POC Glucose (mg/dL) 140 H 266 H (70-110) mg/dL Hemoglobin A1c (0.0-6.0) % Calcium (8.7-10.3) mg/dL Magnesium (1.5-2.4) mg/dL Iron 7 L (50-170) ug/dL TIBC 197 L (228-460) ug/dL % Saturation 3.74 L (12.00-45.00) Transferrin 141.0 L (204.0-354.0) mg/dL Total Bilirubin (0.30-1.20) mg/dL Total Protein (6.2-8.2) g/dL Albumin (3.8-4.9) g/dL Albumin/Globulin Ratio (1.60-3.17) g/dL 02/13/23 02/14/23 02/14/23 Range/Units 21:45 03:27 06:29 WBC (4.50-10.00) X 10*3/uL RBC (4.10-5.20) X 10*6/uL Hgb (12.0-15.0) g/dL Hct (37.2-46.3) % MCHC (32.0-37.0) g/dL Chloride (96-109) mmol/L Carbon Dioxide (20.0-27.5) mmol/L BUN (9.0-27.0) mg/dL Creatinine (0.6-1.5) mg/dL Est GFR (CKD-EPI)AfAm (60.0-200.0) Est GFR (CKD-EPI)NonAf (60.0-200.0) Glucose (70-110) mg/dL POC Glucose (mg/dL) 234 H 185 H 161 H (70-110) mg/dL Hemoglobin A1c (0.0-6.0) % Calcium (8.7-10.3) mg/dL Magnesium (1.5-2.4) mg/dL Iron (50-170) ug/dL TIBC (228-460) ug/dL % Saturation (12.00-45.00) Transferrin (204.0-354.0) mg/dL Total Bilirubin (0.30-1.20) mg/dL Total Protein (6.2-8.2) g/dL Albumin (3.8-4.9) g/dL Albumin/Globulin Ratio (1.60-3.17) g/dL Microbiology - Last 24 Hours (Table) 02/12/23 14:20 Urine Culture - Preliminary Urine,Catheterized Gram Neg Bacilli 02/12/23 14:20 Blood Culture Gram Stain - Preliminary Blood Blood Culture - Preliminary Coagulase Negative Staph Assessment and Plan Assessment: Impression 1. Chronic kidney disease, stage V the last creatinine being 5.2 and GI for 8.6 mL permitted dated 02/13/2023 yesterday 2. Uremia likely with poor appetite and weakness and possible peripheral neuropathy and paresthesias 3. Non-gap acidosis skin 2 CK D on bicarb 4. Iron deficiency anemia iron saturation 3% and hemoglobin is 8.1 on 02/13/2023 yesterday. 5. Urine shows gram-negative bacilli, UA suggestive of UTI 6. Blood culture coagulase negative staph, low-grade fever 99.1 last night, white count slightly high at 10,950 Recommendation 1. Patient is considering hospice. If so no antibiotics will be recommended I'm waiting to hear from the relative who speaks Citizen [place] and after discussion further management
[2023-02-14] MEDS ORDERED: SODIUM FERRIC GLUCONAT-SUCROSE 125 MG in SODIUM CHLORIDE 0.9% 100 ML IVPB ONE (09:30)
--- NOTE | 2023-02-14 09:30 | P.DS ---
Providers Date of admission: 02/12/23 17:01 Expected date of discharge: 02/14/23 Attending physician: Luke Wolf MD Consults: 02/12/23 17:01 Consult Physician Routine Consulting Provider: Amarilis Ruiz Consult Reason/Comments: jignesh, refusing HD Do you want consulting provider notified?: Yes Primary care physician: Physician Nonstaff Hospital Course: Discharge Diagnosis: Generalized weakness with worsening mentation resulting from metabolic encephalopathy secondary to end-stage renal disease and decision not to undergo dialysis. Patient discharged home with family on hospice. ESRD not on dialysis Bacteremia, blood culture positive for gram-negative bacilli. No treatment per family's choice, patient discharged on hospice. UTI, urine culture positive for gram-negative bacilli. No treatment per family's choice, patient discharged on hospice. Hypomagnesemia, replaced Hyperkalemia, resolved Normocytic anemia secondary to ESRD Diabetes mellitus with hypoglycemia Hypertension Legally blind Hospital Course: Patient is a pleasant 77-year-old female with a reported past medical history of hypertension, aru-kisygsf-ywhnynuxq diabetes mellitus, legally blind and end- stage renal disease not undergoing dialysis per her choice. She presented to the emergency department with her family today for chief complaint of hypoglycemia, increasing confusion and generalized body pain. Patient is from [place] and is strictly Azeri-speaking. Patient's family at bedside, son Mansoor Simeon and granddaughter Maggie Simeon are translating at this time. They report that patient came here from [place] nearly one month ago and has since rapidly declined in mentation as well as physical ability. They report she typically walks with a walker but is not even able to stand up anymore. they state she is aware that her kidneys are shutting down and did see a kidney doctor in [place] who recommended dialysis but she adamantly declined. Patient's family states that patient's sister a horrible undergoing dialysis and when the patient was previously of sound mind and alert she made the decision that she would never undergo dialysis.. They state she continues to produce urine and has been residing with them in their home since arrival to [place] one month ago and they brought her in today because she has been so weak and her blood sugar dropped low. They deny any recent fevers or illnesses and patient currently complaining of pain everywhere reporting her whole body is hurting. Pt underwent full evaluation in the emergency department. Labs completed and reviewed. CBC showing normocytic anemia with hemoglobin of 10.4. BMP revealing hyperkalemia with potassium of 5.4 and elevated renal function with BUN of 90, creatinine 5.21, and GFR of 7. Blood glucose 132. Lactate 1.9. Magnesium 1.7 . alkaline phosphatase elevated at 198. Urinalysis was obtained and positive for protein, leukocytes, 16 RBCs, and 29 WBCs. Chest x-ray completed and reviewed, lungs appear clear negative for acute cardiopulmonary process. CT abdomen and pelvis without contrast completed revealing gallbladder hydrops without wall thickening or a cholecystic fluid with no evidence of cholelithiasis.EKG showing sinus tachycardia at 107 bpm with no noted T-wave or ST abnormalities showing no signs of acute ischemia. dDscussed clinical findings, laboratory analysis, and imaging results with the ED physician in detail. Patient was admitted under our services with consultation to nephrology. Family stated they would like to discuss with the kidney specialist to determine what they should do or if they should place their mom/grandmother on hospice. On 02/13/23, I Met with family at bedside along with bun machine operator #[id number]. We discussed goals of care and patient wishes for family to make decisions for her going forward as patient would not like to ever received dialysis. This was confirmed via bun machine operator. Family would like to take patient home on hospice. Consult placed for hospice and case management/social work assisted family with obtaining and delivering of supplies needed for home hospice. Arrangements have been made and patient is being discharged home on hospice with her family this morning. Physical exam: Vital signs reviewed and stable. General: Nontoxic and appears stated age. chronically ill appearing, appears to comfortable Derm: Skin warm and dry, normal coloration for ethnicity. skin dry with poor skin turgor. Head: Atraumatic, normocephalic and symmetric. Eyes: no lid lag, and anicteric sclera. patient is legally blind. Mouth: no lip lesions, mucus membranes dry Cardiovascular: regular rate and rhythm with normal S1S2, systolic murmur, positive posterior tibial pulses bilaterally, and cap refill < 2 seconds. Lungs: Respirations even, regular, and unlabored on room air. Lungs diminished with soft expiratory wheezes. No rhonchi, no rales, no crackles and no accessory muscle usage. Abdominal: soft, nontender to palpation, no guarding, no appreciable organomegaly Ext: ROM intact. No gross muscle atrophy, no edema, no contractures Neuro: face symmetrical, no noted focal neuro deficits Psych: Lethargic A total of 33 minutes of time were spent preparing this complex discharge summary. Pt was discharged on 02/14/23 at 9:30 AM Patient was seen independently by Nurse Practitioner. This document was prepared using [email or web address] dictation software. Please allow for errors in nurse anesthesia program director while rare they do occur. I reviewed the documentation as provided by the RUMA above, who is the original author of this note. I agree with the documented assessment and plan, with the following changes: none Patient Condition at Discharge: Poor Plan - Discharge Summary New Discharge Prescriptions: No Action Bumetanide [Bumex] 1 mg PO DAILY NIFEdipine XL [Procardia Xl] 30 mg PO DAILY Folic Acid 5 mg PO DAILY Cetolan 630mg Tab 1 tab PO BID glyBURIDE/METFORMIN HCL [Glucovance 2.5-500 mg] 0.5 tab PO BID PRN PRN Reason: high blood sugar Discharge Medication List Bumetanide [Bumex] 1 mg PO DAILY 02/12/23 [History] Cetolan 630mg Tab 1 tab PO BID 02/12/23 [History] Folic Acid 5 mg PO DAILY 02/12/23 [History] NIFEdipine XL [Procardia Xl] 30 mg PO DAILY 02/12/23 [History] glyBURIDE/METFORMIN HCL [Glucovance 2.5-500 mg] 0.5 tab PO BID PRN 02/12/23 [History] Patient Instructions/Handouts: Chronic Kidney Disease (DC), Hospice (DC), [place] Catheter Placement and Care (DC) Activity/Diet/Wound Care/Special Instructions: Patient being discharged home with [facility], transfer sheet in chart Activity: As tolerated. Diet: Comfort feeds. Special Instructions: Medications as directed by hospice. Thank you for allowing us to participate in your care, it was truly a pleasure having you for our patient and getting to meet your wonderful family!!! Discharge Disposition: HOME WITH HOSPICE
[2023-02-14] MEDS: SODIUM BICARBONATE TAB 650 MG TAB PO SCH (09:34)
[2023-02-14] MEDS: NIFEdipine XL 30 MG TAB.ER.24 PO SCH (09:34)
[2023-02-14 12:11] LABS: Glucose,Whole Blood 123 mg/dL (70-110)
--- NOTE | 2023-02-18 16:26 | CDI ---
Documentation Clarification Form Date: 02/18/2023 4:08:53 PM From: Erika Farley Admit Date: 02/12/2023 5:01:00 PM Patient Name: Maggie Simeon Visit Number: [id number] Discharge Date: 02/14/2023 2:13:00 PM ATTENTION: The Clinical Documentation Specialists (CDI) and [facility] Coding Staff appreciate your assistance in clarifying documentation. Please respond to the clarification below the line at the bottom and electronically sign. The CDI & [facility] Coding staff will review the response and follow-up if needed. Please note: Queries are made part of the Legal Health Record. If you have any questions, please contact the author of this message via ITS. Dr. Oscar Guerrier The patient has bacteremia- blood culture positive for gram negative bacilli, and UTI- urine culture positive for gram-negative bacilli- no treatment per familys choice is documented in the discharge summary 02/14/23. Based on this information and the findings below, is there an additional diagnosis that is clinically appropriate for this patient? History/Risk Factors: 77 year old female who is from [place], has hx of HTN, non- insulin DM, legally blind, and end stage renal disease. Patient has refused to undergo dialysis. Clinical Indicators: patient presented with hypoglycemia, increasing confusion, and generalized body pain, diagnosed with ESRD, metabolic encephalopathy, hyperkalemia, anemia, bacteremia, and UTI- family elected no treatment/dialysis. Patient was discharged to home on hospice. WBC : 6.1, 10.95 Lactic acid: 1.9 Blood cultures: staphylococcus haemolyticus Urine cultures: citrobacter murliniae Vitals signs: T: 97, P: 130, R: 9-22, BP: 186/115, O2: 88 room air Treatment: no treatment per family request Consult: nephrology- family opted for hospice- refused dialysis Is there an additional diagnosis that is clinically appropriate for this patient? [ ] Sepsis, due to UTI present on admission [ ] Sepsis, developed during stay, not present on admission [ x] Bacteremia [ ] Other, please specify [ ] Unable to determine SIRS Criteria: 2 or more of the following may indicate SIRS Temperature < 96.8F (36C) or > 101.0F (38.3C) Heart Rate > 90 bpm Respiratory Rate > 20 breaths/min or PaCO2 < 32 mmHg White Blood Cell Count > 12,000 or < 4,000 cells/mm3 or > 10% bands MTDD
== END 2023-02-14 14:13 | disposition hospice, home (50) | DRG 682 ==
LOC: EC 13:59 → 4SSUR 17:01
PROVIDERS: ADMIT Student in an Organized Health Care Education/Training Program; ATTEND Student in an Organized Health Care Education/Training Program
DX: I12.0 Hypertensive chronic kidney disease with stage 5 chronic kidney disease or end stage renal disease (principal); G93.41 Metabolic encephalopathy; N18.6 End stage renal disease; E87.20 Acidosis, unspecified; N39.0 Urinary tract infection, site not specified; R78.81 Bacteremia; E11.22 Type 2 diabetes mellitus with diabetic chronic kidney disease; E11.649 Type 2 diabetes mellitus with hypoglycemia without coma; R55 Syncope and collapse; Z53.29 Procedure and treatment not carried out because of patient's decision for other reasons; H54.8 Legal blindness, as defined in USA; D63.1 Anemia in chronic kidney disease; R00.0 Tachycardia, unspecified; E87.5 Hyperkalemia; E86.0 Dehydration; Z66 Do not resuscitate; D50.9 Iron deficiency anemia, unspecified; E83.42 Hypomagnesemia; B96.89 Other specified bacterial agents as the cause of diseases classified elsewhere; Z79.84 Long term (current) use of oral hypoglycemic drugs; Z79.899 Other long term (current) drug therapy; Z51.5 Encounter for palliative care
CPT/HCPCS: 36415; 71046; 74176; 80053; 81001; 83036; 83540; 83550; 83605; 83735; 85025; 85027; 85610; 85730; 87077; 87086; 87186; 93005; 96361; 96374; 96375; 96376; 99285